=== PATIENT | male | born 1995 | race Caucasian/White ===

== ENCOUNTER 2020-12-30 13:17 | Emergency (ER) | payer MEDICAID, SELFPAY ==
[2020-12-30 13:24] VITALS: BP 148/101; PULSE 79; RESP 20; TEMP 36.5; O2SAT 98
--- NOTE | 2020-12-30 14:07 | ED.GENADUL_ITS ---
Discharge Plan Disposition Patient Disposition: HOME Condition: Stable Discharge Details Clinical Impression: Finger laceration Primary Care Provider: Jessica Najera ED Provider: Hilario York Home Meds and New Rx's Prescriptions: No Action No Known Home Meds RF: 0 Discharge Instructions Instructions: Finger Laceration (ED) Additional Instructions: Keep the wound clean and dry. Nhho-ecn-[id number] Tylenol and/or Motrin as directed for discomfort. Please watch for new or worsening symptoms and return to the ER for any concerns. Stand Alone Forms: Work Release Medical Decision Making 25-year-old gentleman, history of hypertension, noncompliant with his medication, presents for evaluation of left index finger injury. He is right- hand dominant. Examination reveals a well-healing laceration. Neuro, vascular, tendon intact. He reports occasional shooting pain from his shoulder down to his hand with movement or lifting. Likely unrelated to the laceration. He appears well, nontoxic. We discussed routine wound care as well as anti- inflammatory therapy for his discomfort. Patient has no additional questions or concerns and is comfortable this plan. HPI General Mode of arrival: ambulatory . Date/Time Provider Initiated Documentation: 12/30/20 13:18 . Limitations to Documentation: no limitations . HPI Narrative: This is a 25-year-old gentleman, history of hypertension, [id number], presenting for a left index finger injury that occurred yesterday at work. He states that he accidentally cut his finger with a knife. He was able to clean it immediately, bleeding stopped in a short period of time with simple pressure. Subsequently he noticed some pain in his left arm worse with movement and li fting. He is concerned that that pain is he is experiencing in his arm could be related to the finger laceration yesterday. He is able to completely move his finger. Denies numbness, tingling, weakness. Reports tetanus is up-to-date. Related Data Home Medications Medication Instructions Recorded Confirmed Unknown [No Known Home Meds] 12/30/20 12/30/20 Allergies Allergy/AdvReac Type Severity Reaction Status Date / Time peanut Allergy Anaphylaxis Unverified 12/30/20 13:28 bee stings Allergy Anaphylaxis Uncoded 12/30/20 13:28 General Stated Complaint: GenMedical COLIN: 4 Review of Systems Constitutional Constitutional: Denies fever(s) and Denies weakness Musculoskeletal Musculoskeletal: Denies numbness and Denies tingling Integumentary/Breasts Skin/Breast: Denies rash Neurologic Neurologic: Denies numbness, Denies tingling and Denies weakness [facility] Social History Smoking/Tobacco Use Status: Never Smoking risk assessment performed?: Yes Alcohol Intake: current Alcohol Intake frequency: 3 or more drinks per day Alcohol type: beer, wine and hard liquor Substance use type: does not use Do you feel safe at home: Yes Do you feel safe in your relationship?: Yes Exam Const General: cooperative, healthy appearing, comfortable and no acute distress Orientation: alert and awake [facility] Head: normal to inspection, normocephalic and atraumatic Eyes General: appearance normal, both eyes and all related structures Conjunctivae: conjunctivae normal Sclera: sclerae normal Neck Neck: normal visual inspection, full ROM, trachea midline, supple and nontender Resp Effort & Inspection: normal respiratory effort and able to speak in complete sentences Cardio Rate: regular rate Rhythm: regular rhythm Skin General skin exam: no rashes or lesions noted Neuro General: patient alert, patient awake, moves all extremities and no focal motor deficits Sensory Exam: no sensory deficits noted Extrem General: normal to inspection, full ROM and capillary refill normal Right upper extremity: normal to inspection, full ROM, normal capillary refill and no joint enlargement; no cyanosis and no edema Hand/finger images: 1. There is a 0.5 cm laceration that is well-healing and approximated. Nontender. Without erythema. Neuro, vascular, tendon intact. Psych Appearance: grossly normal Mental Status: mental status grossly normal Course Vital Signs Vital signs: Vital Signs Temperature 36.5 C 12/30/20 13:24 Pulse 79 12/30/20 13:24 Respiratory Rate 20 12/30/20 13:24 Blood Pressure 148/101 H 12/30/20 13:24 Pulse Oximetry 98 12/30/20 13:24 Temperature 36.5 C 12/30/20 13:24 Temperature Source Skin 12/30/20 13:24 Pulse 79 12/30/20 13:24 Respiratory Rate 20 12/30/20 13:24 Respiratory Effort Non-Labored 12/30/20 13:29 Blood Pressure 148/101 H 12/30/20 13:24 Blood Pressure Position Sitting 12/30/20 13:24 Pulse Oximetry 98 12/30/20 13:24 Oxygen Delivery Method Room Air 12/30/20 13:24 Oxygen Flow Rate 0 12/30/20 13:24 Pain Level 5 12/30/20 13:24 Comment 12/30/20 13:24
[2020-12-30 14:12] VITALS: BP 146/100; PULSE 85; O2SAT 96
== END 2020-12-30 14:14 | disposition home or self-care (01) ==
PROVIDERS: Emergency Provider Physician Assistant; PCP Nurse Practitioner Family
DX: S61.211A Laceration without foreign body of left index finger without damage to nail, initial encounter (principal); W26.0XXA Contact with knife, initial encounter; Y99.0 Civilian activity done for income or pay
CPT/HCPCS: 99282; 99283

== ENCOUNTER 2021-01-18 21:31 | Outpatient (REF) | payer MEDICAID, SELFPAY ==
[2021-01-18 19:59] LABS: HCT 49.1 % (40.0-50.0); MCH 31.2 pg (27.0-33.0); MCHC 34.6 % (32.0-36.0); MCV 90.1 fL (80-95); MPV 9.5 fL (8.0-11.0); Platelet Count 270 10^3/uL (130-400); RBC 5.45 10^6/uL (4.36-5.78); RDW 12.2 % (11.8-14.1); RDW-SD 39.5 fL; WBC 7.65 10^3/uL (4.4-10.8)
[2021-01-18 20:33] LABS: ALT 115 U/L (16-63); AST 63 U/L (15-37); Albumin 4.6 g/dL (3.4-5.0); Alkaline Phosphatase 66 U/L (46-116); Anion Gap 11.4 mmol/L (3-11); BUN 14 mg/dL (7-18); Bilirubin, Total 0.6 mg/dL (0.2-1.0); CO2 27.6 mmol/L (21.0-32.0); CREATININE 1.1 mg/dL (0.70-1.30); Calcium 9.7 mg/dL (8.5-10.1); Calculated LDL 139 mg/dL (<100); Chloride 103 mmol/L (98-107); Cholesterol 227 mg/dL (<200); Glucose 103 mg/dL (74-106); HDL Cholesterol 46 mg/dL (40-60); Potassium 3.8 mmol/L (3.5-5.1); Sodium 142 mmol/L (136-145); TSH (W/Ref FT4) 1.44 uIU/mL (0.36-3.74); Total Protein 8.2 g/dL (6.4-8.2); Triglyceride 213 mg/dL (<150)
== END 2021-01-18 21:32 | disposition home or self-care (01) ==
LOC: NCHCN 21:31
PROVIDERS: PCP Nurse Practitioner Family; Visit Provider Family Medicine
DX: I10 Essential (primary) hypertension (principal)
CPT/HCPCS: 80053; 80061; 85027; 84443

== ENCOUNTER 2021-01-29 08:24 | Emergency (ER) | payer MEDICAID, SELFPAY ==
[2021-01-29 08:30] VITALS: BP 158/105; PULSE 79; RESP 16; TEMP 36.3; O2SAT 99
--- NOTE | 2021-01-29 08:41 | W.ED.GENAD ---
Discharge Plan Disposition Patient Disposition: HOME Condition: Stable Discharge Details Clinical Impression: Otitis media Primary Care Provider: Jessica Najera ED Provider: Hilario York Home Meds and New Rx's Prescriptions: New amoxicillin 875 mg tablet 875 mg PO BID Qty: 20 RF: 0 Discharge Instructions Instructions: Ear Infection (ED) Additional Instructions: Amoxicillin as directed. [id number]-vxl-[id number] Tylenol, Motrin, antihistamine as directed for symptomatic control. You may also use uvvb-zve-dpctwuf cerumen drops for your bilateral ear wax buildup. Please watch for new or worsening symptoms and return to the ER for any concerns. Medical Decision Making 25-year-old smoker presents with 4-day history of right ear being blocked, now progressive pain. Clinically his TM appears erythematous and has slight bulging. No drainage or air-fluid level. No trismus. Pharynx unremarkable. Will recommend kaib-vlt-haqeawa drops for chronic cerumen issues, prescribed amoxicillin for otitis media, and recommend ohxc-cpk-wneleob medications. Patient comfortable with this plan and has no additional questions or concerns Medical Records Medical records reviewed: Yes I reviewed the patient's medical records. HPI General Mode of arrival: ambulatory. Date/Time Provider Initiated Documentation: 01/29/21 08:33. Limitations to Documentation: no limitations. Information obtained by: patient. HPI Narrative: This is a 25-year-old male, current half pack a day smoker, presenting with chief complaint of an ear infection. He reports that 4 days ago he felt as though his right ear was blocked, progressively it became more and more uncomfortable, and now the pain seems to travel downward from his ear to his jaw. He denies any fever, trauma, sore throat, ear drainage. Denies any cough or rash. He has not taken any medications for his symptoms. He reports pain is currently moderate in nature. He has had an ear infection in the past and this feels similarly. Denies any mouth or dental pain. Denies facial swelling. Related Data Home Medications Medication Instructions Recorded Confirmed amoxicillin 875 mg PO BID #20 tab 01/29/21 Previous Rx's Medication Instructions Recorded amoxicillin 875 mg PO BID #20 tab 01/29/21 Allergies Allergy/AdvReac Type Severity Reaction Status Date / Time bee venom protein (honey bee) Allergy Anaphylaxis Unverified 01/29/21 08:33 peanut Allergy Anaphylaxis Unverified 12/30/20 13:28 General Stated Complaint: EarProblem COLIN: 4 Review of Systems Constitutional Constitutional: Denies fever(s) and Denies headache(s) Eyes Eyes: Denies eye discharge ENT Ears, Nose, Mouth, and Throat: Reports otalgia, Denies headache(s), Denies nasal congestion, Denies neck pain and Denies sore throat Cardiovascular Cardiovascular: Denies dyspnea Respiratory Respiratory: Denies cough and Denies dyspnea Musculoskeletal Musculoskeletal: Denies neck pain Integumentary/Breasts Skin/Breast: Denies rash Neurologic Neurologic: Denies headache(s) [facility] Social History Smoking/Tobacco Use Status: Current every day Tobacco Type: cigarettes Smoking risk assessment performed?: Yes Alcohol Intake: current Alcohol Intake frequency: 3 or more drinks per day Alcohol type: beer, wine and hard liquor Drug use: Never Substance use type: does not use Do you feel safe at home: Yes Do you feel safe in your relationship?: Yes Exam Const General: cooperative, healthy appearing, comfortable and no acute distress Orientation: alert, awake and oriented x3 [facility] Head: normal to inspection, normocephalic and atraumatic Ears: external ears normal, TM normal on the left, mastoids normal, no periauricular adenopathy, TM abnormal bulging and erythematous; with no fluid behind the TM and other (Moderate cerumen bilateral ears, no impaction) General nose exam: external nose normal Face and sinus: normal facial exam Mouth: moist mucous membranes Throat: posterior oropharynx normal Eyes General: appearance normal, both eyes and all related structures Conjunctivae: conjunctivae normal Sclera: sclerae normal Neck Neck: normal visual inspection, full ROM, no lymphadenopathy, trachea midline, supple and nontender Resp Effort & Inspection: normal respiratory effort and able to speak in complete sentences Skin General skin exam: no rashes or lesions noted Neuro General: patient alert, patient awake, moves all extremities and no focal motor deficits Sensory Exam: no sensory deficits noted Psych Appearance: grossly normal Mental Status: mental status grossly normal Course Vital Signs Vital signs: Vital Signs Temperature 36.3 C L 01/29/21 08:30 Pulse 79 01/29/21 08:30 Respiratory Rate 16 01/29/21 08:30 Blood Pressure 158/105 H 01/29/21 08:30 Pulse Oximetry 99 01/29/21 08:30 Temperature 36.3 C L 01/29/21 08:30 Temperature Source Skin 01/29/21 08:30 Pulse 79 01/29/21 08:30 Respiratory Rate 16 01/29/21 08:30 Respiratory Effort 01/29/21 08:32 Blood Pressure 158/105 H 01/29/21 08:30 Blood Pressure Position Sitting 01/29/21 08:30 Pulse Oximetry 99 01/29/21 08:30 Oxygen Delivery Method Room Air 01/29/21 08:30 Oxygen Flow Rate 0 01/29/21 08:30 Pain Level 4 01/29/21 08:30
[2021-01-29 08:54] VITALS: BP 150/110
== END 2021-01-29 09:06 | disposition home or self-care (01) ==
PROVIDERS: Emergency Provider Physician Assistant; PCP Nurse Practitioner Family
DX: H66.91 Otitis media, unspecified, right ear (principal); H61.23 Impacted cerumen, bilateral
CPT/HCPCS: 99283

== ENCOUNTER 2021-02-04 19:56 | Outpatient (CLI) | payer MEDICAID, SELFPAY ==
--- NOTE | 2021-02-04 | DI.RAD_ITS ---
EXAM: XR FOOT LT COMPLETE CLINICAL HISTORY: LT FOOT PAIN [id number]. TECHNIQUE: 2D digital imaging was performed. COMPARISON: No exams were available for comparison FINDINGS: BONES: No acute fracture is present. No bony destructive lesion is seen. There is a bipartite medial sesamoid at the head of the 1st metatarsal. JOINTS: No dislocation present. SOFT TISSUE: Normal. IMPRESSION: No definite acute fracture or dislocation. Please correlate with patient's site of pain. DATA REPOSITORY: RADIATION DOSE DELIVERED:
== END 2021-02-04 20:16 ==
PROVIDERS: PCP Nurse Practitioner Family; Visit Provider Family Medicine
DX: M79.672 Pain in left foot (principal)
CPT/HCPCS: 73630

== ENCOUNTER 2021-03-16 11:08 | Emergency (ER) | payer MEDICAID, SELFPAY ==
[2021-03-16] VITALS (24 sets, daily range): BP systolic 135–160; BP diastolic 86–105; PULSE 66–86; RESP 11–23; TEMP 37; O2SAT 91–99
[2021-03-16] MEDS: Normal Saline Flush 10 ML SYR IVP (11:45)
[2021-03-16 11:55] LABS: Abs Immature Grans 0.01 10^3/uL (0.0-0.06); Absolute Basophil Count 0.02 10^3/uL (0.0-0.2); Absolute Eosinophil Count 0.05 10^3/uL (0.0-0.7); Absolute Lymphocyte Count 1.84 10^3/uL (1.2-3.4); Absolute Neutrophil Count 3.77 10^3/uL (1.2-6.7); Basophils % 0.3; Eosinophils % 0.8; HCT 46.4 % (40.0-50.0); HGB 15.5 g/dL (13.5-17.5); Immature Grans % 0.2; Lymphocytes % 29.3; MCHC 33.4 % (32.0-36.0); MCV 89.9 fL (80-95); MPV 8.6 fL (8.0-11.0); Monocytes % 9.5; Neutrophils % 59.9; Nucleated RBC 0 %; Platelet Count 253 10^3/uL (130-400); RBC 5.16 10^6/uL (4.36-5.78); RDW-SD 39.8 fL; WBC 6.29 10^3/uL (4.4-10.8)
[2021-03-16 12:10] LABS: ALT 105 U/L (16-63); AST 54 U/L (15-37); Albumin 4.2 g/dL (3.4-5.0); Alkaline Phosphatase 56 U/L (46-116); Anion Gap 9.4 mmol/L (3-11); BUN 18 mg/dL (7-18); Bilirubin, Total 0.6 mg/dL (0.2-1.0); CO2 29.6 mmol/L (21.0-32.0); CREATININE 1.2 mg/dL (0.70-1.30); Calcium 9.2 mg/dL (8.5-10.1); Chloride 103 mmol/L (98-107); ETHANOL BLOOD < 3.0 mg/dL (<3); Glucose 93 mg/dL (74-106); Lipase 98 U/L (73-393); Magnesium 1.8 mg/dL (1.8-2.4); Potassium 3.9 mmol/L (3.5-5.1); Sodium 142 mmol/L (136-145); Total Protein 7.7 g/dL (6.4-8.2)
[2021-03-16] MEDS: chlordiazePOXIDE 25 MG CAP PO (12:11)
[2021-03-16 12:15] LABS: Bilirubin Negative (Negative); Blood Negative (Negative); Clarity Clear (Clear); Glucose Negative (Negative); Ketones Negative (Negative); Leukocyte Esterase Negative (Negative); Nitrite Negative (Negative); pH 8.5 (5-8)
[2021-03-16 12:17] LABS: PTT Activated 23.9 sec (21.0-27.5); Prothrombin Time 10.4 sec (9.3-11.0)
[2021-03-16 12:23] LABS: Bacteria Rare HPF (Negative); Crystals Negative HPF (Negative); Epithelial Cells Rare HPF (Negative); Mucus Trace (Negative); Other Cells Negative (Negative); RBC 0-2 HPF (0-2); WBC 0-2 HPF (0-5)
[2021-03-16 12:24] LABS: C & S Indicated? No; Casts Negative LPF (Negative)
[2021-03-16 12:28] LABS: *AMPHETAMINES SCREEN URINE Negative (Negative); *BARBITURATES SCREEN URINE Negative (Negative); *BENZODIAZEPINES SCREEN URINE Negative (Negative); Cannabinoids THC Negative (Negative); Cocaine Screen,Urine Negative (Negative); METHADONE URINE SCREEN Negative (Negative); OPIATES URINE SCREEN Negative (Negative); Tricyclic Antidepressants Negative (Negative)
--- NOTE | 2021-03-16 12:39 | ED.GENADUL_ITS ---
Discharge Plan Disposition Patient Disposition: HOME Condition: Stable Discharge Details Clinical Impression: Alcohol withdrawal Primary Care Provider: Jessica Najera ED Provider: Hilario York Home Meds and New Rx's Prescriptions: New chlordiazepoxide HCl 25 mg capsule 25 mg PO Q8H PRN (Reason: alcohol withdrawal) Qty: 10 RF: 0 Continued lisinopril 10 mg Tablet 10 mg PO DAILY RF: 0 Discharge Instructions Instructions: Alcohol Withdrawal (ED) Additional Instructions: At this time your laboratory values do not reveal any obvious emergent process. Please follow the instructions given to you by both our care management team and the executive business coach. I am providing you a short-term prescription of Librium, please take as directed. You are already on the list for 2 detox facilities here in the [facility], please await bed availability and placement. Watch for new or worsening symptoms and return to the ER for any concerns. Today, there is no sign of anemia. As we discussed, if you have ongoing concerns about potential GI bleeding, outpatient colonoscopy likely indicated. Medical Decision Making 25-year-old gentleman reports history of alcohol abuse, whiskey, last drink this morning. He is already on the list for placement at 2 separate facilities here in the [facility]. He reports that his withdrawal symptoms at this time are minimal because he did drink this morning. He noticed what he thought was some darker than usual urine, possible blood in his urine and stool over the past 24-48 hours. He denies any suicidal or homicidal ideations. Clinically he appears well, nontoxic. He is without abdominal pain, tremors, vomiting, etc. Will obtain IV access, give a banana bag, obtain medical screening laboratory values, and requested both are care management and executive business coach both meet with the patient. In the meantime I will give him a single dose of 25 p.o. Librium. Banana bag was delayed, instead patient received 1 L IV fluid, oral magnesium, thiamine, multivitamin. Laboratory values are unremarkable for obvious emergent process. His alcohol level is actually less than 3. No evidence of anemia. Urinalysis negative for blood. Discussed benign laboratory values with patient. Patient remains hemodynamically stable. Both our executive business coach and care management team evaluated patient. Patient is already on the wait list for 2 separate detox facilities. At this time it does not appear that he needs emergent inpatient criteria. I will provide the patient with a limited prescription, 10 tablets, 25 mg Librium. He was encouraged to return to the ER for new or worsening symptoms. Otherwise he will continue seeking placement in a detox facility. Encouraged to return to the ER for new or worsening symptoms. Standard return and discharge precautions given. Medical Records Medical records reviewed: Yes I reviewed the patient's medical records. Lab Data Lab results reviewed: Yes I reviewed the patient's lab results. Labs: Laboratory Tests Range/Units 03/16/21 03/16/21 03/16/21 11:45 11:45 11:45 WBC (4.4-10.8) 10^3/uL 6.29 RBC (4.36-5.78) 10^6/uL 5.16 Hgb (13.5-17.5) g/dL 15.5 Hct (40.0-50.0) % 46.4 MCV (80-95) fL 89.9 MCH (27.0-33.0) pg 30.0 MCHC (32.0-36.0) % 33.4 RDW (11.8-14.1) % 12.0 Plt Count (130-400) 10^3/uL 253 MPV (8.0-11.0) fL 8.6 Immature Gran % 0.2 Neutrophils % 59.9 Lymphocytes % 29.3 Monocytes % 9.5 Eosinophils % 0.8 Basophils % 0.3 Nucleated RBC % % 0 Absolute Neutrophils (1.2-6.7) 10^3/uL 3.77 Absolute Lymphocytes (1.2-3.4) 10^3/uL 1.84 Absolute Monocytes (0.1-0.8) 10^3/uL 0.60 Absolute Eosinophils (0.0-0.7) 10^3/uL 0.05 Absolute Basophils (0.0-0.2) 10^3/uL 0.02 PT Cancelled INR Cancelled APTT Cancelled Sodium (136-145) mmol/L 142 Potassium (3.5-5.1) mmol/L 3.9 Chloride (98-107) mmol/L 103 Carbon Dioxide (21.0-32.0) mmol/L 29.6 Anion Gap (3-11) mmol/L 9.4 BUN (7-18) mg/dL 18 Creatinine (0.70-1.30) mg/dL 1.2 Estimated GFR/1.73 m2 (mL/min/1.73m2) >= 60.00 Glucose (74-106) mg/dL 93 Calcium (8.5-10.1) mg/dL 9.2 Magnesium (1.8-2.4) mg/dL 1.8 Total Bilirubin (0.2-1.0) mg/dL 0.6 AST (15-37) U/L 54 H ALT (16-63) U/L 105 H Alkaline Phosphatase (46-116) U/L 56 Total Protein (6.4-8.2) g/dL 7.7 Albumin (3.4-5.0) g/dL 4.2 Lipase (73-393) U/L 98 Urine Color (Yellow) Urine Clarity (Clear) Urine pH (5-8) Ur Specific [place] (1.005-1.025) Urine Protein (Negative) mg/dL Urine Ketones (Negative) mg/dL Urine Blood (Negative) Urine Nitrite (Negative) Urine Bilirubin (Negative) Urine Urobilinogen (Up TO 0.2) EU/dL Ur Leukocyte Esterase (Negative) Urine RBC (0-2) HPF Urine WBC (0-5) HPF Ur Epithelial Cells (Negative) HPF Urine Crystals (Negative) HPF Urine Bacteria (Negative) HPF Urine Casts (Negative) LPF Urine Mucus (Negative) Urine Other (Negative) Ur Culture Indicated? Urine Glucose (Negative) mg/dL Urine Opiates Screen (Negative) Urine Methadone Screen (Negative) Ur Barbiturates Screen (Negative) Ur Tricyclics Screen (Negative) Ur Amphetamines Screen (Negative) U Benzodiazepines Scrn (Negative) Urine Cocaine Screen (Negative) Ur THC Screen (Negative) Ethyl Alcohol (<3) mg/dL < 3.0 Range/Units 03/16/21 03/16/21 03/16/21 11:55 12:05 12:05 WBC (4.4-10.8) 10^3/uL RBC (4.36-5.78) 10^6/uL Hgb (13.5-17.5) g/dL Hct (40.0-50.0) % MCV (80-95) fL MCH (27.0-33.0) pg MCHC (32.0-36.0) % RDW (11.8-14.1) % Plt Count (130-400) 10^3/uL MPV (8.0-11.0) fL Immature Gran % Neutrophils % Lymphocytes % Monocytes % Eosinophils % Basophils % Nucleated RBC % % Absolute Neutrophils (1.2-6.7) 10^3/uL Absolute Lymphocytes (1.2-3.4) 10^3/uL Absolute Monocytes (0.1-0.8) 10^3/uL Absolute Eosinophils (0.0-0.7) 10^3/uL Absolute Basophils (0.0-0.2) 10^3/uL PT 10.4 INR 1.0 APTT 23.9 Sodium (136-145) mmol/L Potassium (3.5-5.1) mmol/L Chloride (98-107) mmol/L Carbon Dioxide (21.0-32.0) mmol/L Anion Gap (3-11) mmol/L BUN (7-18) mg/dL Creatinine (0.70-1.30) mg/dL Estimated GFR/1.73 m2 (mL/min/1.73m2) Glucose (74-106) mg/dL Calcium (8.5-10.1) mg/dL Magnesium (1.8-2.4) mg/dL Total Bilirubin (0.2-1.0) mg/dL AST (15-37) U/L ALT (16-63) U/L Alkaline Phosphatase (46-116) U/L Total Protein (6.4-8.2) g/dL Albumin (3.4-5.0) g/dL Lipase (73-393) U/L Urine Color (Yellow) Yellow Urine Clarity (Clear) Clear Urine pH (5-8) 8.5 H Ur Specific [place] (1.005-1.025) 1.020 Urine Protein (Negative) mg/dL Trace H Urine Ketones (Negative) mg/dL Negative Urine Blood (Negative) Negative Urine Nitrite (Negative) Negative Urine Bilirubin (Negative) Negative Urine Urobilinogen (Up TO 0.2) EU/dL 1.0 H Ur Leukocyte Esterase (Negative) Negative Urine RBC (0-2) HPF 0-2 Urine WBC (0-5) HPF 0-2 Ur Epithelial Cells (Negative) HPF Rare Urine Crystals (Negative) HPF Negative Urine Bacteria (Negative) HPF Rare Urine Casts (Negative) LPF Negative Urine Mucus (Negative) Trace Urine Other (Negative) Negative Ur Culture Indicated? No Urine Glucose (Negative) mg/dL Negative Urine Opiates Screen (Negative) Negative Urine Methadone Screen (Negative) Negative Ur Barbiturates Screen (Negative) Negative Ur Tricyclics Screen (Negative) Negative Ur Amphetamines Screen (Negative) Negative U Benzodiazepines Scrn (Negative) Negative Urine Cocaine Screen (Negative) Negative Ur THC Screen (Negative) Negative Ethyl Alcohol (<3) mg/dL HPI General Mode of arrival: ambulatory . Date/Time Provider Initiated Documentation: 03/16/21 11:10 . Limitations to Documentation: no limitations . Information obtained by: patient . HPI Narrative: This is a 25-year-old male, reports alcohol abuse, a 5th of whiskey daily, current smoker, presenting for alcohol withdrawal. Patient states that he has formally detox once, approximately 1 year ago and was sober for roughly 3 months. Patient states that he has already been in contact with to detox facilities [place] the [place] and he is on the waiting list for both of them. Patient states that when he does not have any drinks he develops headache, shaking, nausea, and just feeling out of it. He tells me that he has had hallucinations in the past but denies any history of alcohol withdrawal seizures. Patient states that this morning he had 2 drinks of whiskey so that his withdrawal would not be severe. He states over the past 24-48 hours he has noticed what he thought was darker than normal urine, potential blood in his urine and stool. He denies recent illness, trauma, visual changes, neck pain, chest pain, shortness of breath, abdominal pain, diarrhea, constipation, dysuria, skin rash, numbness, tingling, focal weakness. Patient states that he has been on Librium in the past which has helped with his withdrawal symptoms. He denies any drug use. Related Data Home Medications Medication Instructions Recorded Confirmed chlordiazepoxide HCl 25 mg PO Q8H PRN #10 cap 03/16/21 lisinopril 10 mg PO DAILY 03/16/21 03/16/21 Previous Rx's Medication Instructions Recorded chlordiazepoxide HCl 25 mg PO Q8H PRN #10 [facility] 03/16/21 Allergies Allergy/AdvReac Type Severity Reaction Status Date / Time bee venom protein (honey bee) Allergy Anaphylaxis Unverified 03/16/21 11:23 peanut Allergy Anaphylaxis Unverified 05/15/21 11:23 General Stated Complaint: ETOHWithdr COLIN: 3 Review of Systems Constitutional Constitutional: Denies fatigue, Denies fever(s), Denies headache(s) and Denies weakness Eyes Eyes: Denies change in vision ENT Ears, Nose, Mouth, and Throat: Denies headache(s) and Denies neck pain Cardiovascular Cardiovascular: Denies chest pain and Denies dyspnea Respiratory Respiratory: Denies cough and Denies dyspnea Gastrointestinal Gastrointestinal: Denies abdominal pain, Denies melena, Reports hematochezia and Reports nausea Genitourinary Genitourinary: Reports hematuria and Denies dysuria Musculoskeletal Musculoskeletal: Denies neck pain, Denies numbness and Denies tingling Integumentary/Breasts Skin/Breast: Denies rash Neurologic Neurologic: Denies headache(s), Denies numbness, Denies tingling and Denies weakness Psychiatric Psychiatric: Denies homicidal ideation and Denies suicidal ideation Endocrine Endocrine: Denies fatigue Hematologic/Lymphatic Hematologic/Lymphatic: Denies easy bleeding and Denies easy bruising PFSH Social History Smoking/Tobacco Use Status: Current every day Tobacco Type: cigarettes Smoking risk assessment performed?: Yes Alcohol Intake: current Alcohol Intake frequency: 3 or more drinks per day Alcohol type: beer, wine and hard liquor Drug use: Never Substance use type: does not use Do you feel safe at home: Yes Do you feel safe in your relationship?: Yes Exam Const General: cooperative, healthy appearing, comfortable and no acute distress Orientation: alert, awake and oriented x3 HENMT Head: normal to inspection, normocephalic and atraumatic Face and sinus: normal facial exam Mouth: moist mucous membranes Throat: posterior oropharynx normal Eyes General: appearance normal, both eyes and all related structures Conjunctivae: conjunctivae normal Neck Neck: normal visual inspection, full ROM, trachea midline and supple Resp Effort & Inspection: normal respiratory effort and able to speak in complete sentences Auscultation: clear to auscultation bilaterally Cardio Rate: regular rate Rhythm: regular rhythm GI Inspection: normal to inspection Palpation: soft, not firm, no guarding, no pulsatile masses and nontender Auscultation: normal bowel sounds Back/Spine/Pelvis Back: No back tenderness Skin General skin exam: no rashes or lesions noted Neuro General: patient alert, patient awake, patient oriented x3, moves all extremities and no focal motor deficits Cognition: normal cognition Speech: speech normal Gait: normal gait Motor: muscle tone normal throughout Sensory Exam: no sensory deficits noted Extrem General: normal to inspection, full ROM and capillary refill normal Psych Appearance: grossly normal Mental Status: mental status grossly normal Course Vital Signs Vital signs: Vital Signs Temperature 37 C 03/16/21 11:16 Pulse 77 03/16/21 11:16 Respiratory Rate 23 03/16/21 11:16 Blood Pressure 160/105 H 03/16/21 11:16 Pulse Oximetry 96 03/16/21 11:16 Temperature 37 C 03/16/21 11:16 Temperature Source Skin 03/16/21 11:16 Pulse 77 03/16/21 11:16 Respiratory Rate 23 03/16/21 11:16 Respiratory Effort Non-Labored 03/16/21 11:16 Respiratory Pattern Normal 03/16/21 11:25 Blood Pressure 160/105 H 03/16/21 11:16 Blood Pressure Position Supine 03/16/21 11:16 Pulse Oximetry 96 03/16/21 11:16 Oxygen Delivery Method Room Air 03/16/21 11:16 Oxygen Flow Rate 0 03/16/21 11:16 Pain Level 7 03/16/21 11:16 Lab/Test Results Lab/Test Results: Laboratory Tests Range/Units 03/16/21 03/16/21 03/16/21 11:45 11:45 11:45 WBC (4.4-10.8) 10^3/uL 6.29 RBC (4.36-5.78) 10^6/uL 5.16 Hgb (13.5-17.5) g/dL 15.5 Hct (40.0-50.0) % 46.4 MCV (80-95) fL 89.9 MCH (27.0-33.0) pg 30.0 MCHC (32.0-36.0) % 33.4 RDW (11.8-14.1) % 12.0 Plt Count (130-400) 10^3/uL 253 MPV (8.0-11.0) fL 8.6 Immature Gran % 0.2 Neutrophils % 59.9 Lymphocytes % 29.3 Monocytes % 9.5 Eosinophils % 0.8 Basophils % 0.3 Nucleated RBC % % 0 Absolute Neutrophils (1.2-6.7) 10^3/uL 3.77 Absolute Lymphocytes (1.2-3.4) 10^3/uL 1.84 Absolute Monocytes (0.1-0.8) 10^3/uL 0.60 Absolute Eosinophils (0.0-0.7) 10^3/uL 0.05 Absolute Basophils (0.0-0.2) 10^3/uL 0.02 PT Cancelled INR Cancelled APTT Cancelled Sodium (136-145) mmol/L 142 Potassium (3.5-5.1) mmol/L 3.9 Chloride (98-107) mmol/L 103 Carbon Dioxide (21.0-32.0) mmol/L 29.6 Anion Gap (3-11) mmol/L 9.4 BUN (7-18) mg/dL 18 Creatinine (0.70-1.30) mg/dL 1.2 Estimated GFR/1.73 m2 (mL/min/1.73m2) >= 60.00 Glucose (74-106) mg/dL 93 Calcium (8.5-10.1) mg/dL 9.2 Magnesium (1.8-2.4) mg/dL 1.8 Total Bilirubin (0.2-1.0) mg/dL 0.6 AST (15-37) U/L 54 H ALT (16-63) U/L 105 H Alkaline Phosphatase (46-116) U/L 56 Total Protein (6.4-8.2) g/dL 7.7 Albumin (3.4-5.0) g/dL 4.2 Lipase (73-393) U/L 98 Urine Color (Yellow) Urine Clarity (Clear) Urine pH (5-8) Ur Specific [place] (1.005-1.025) Urine Protein (Negative) mg/dL Urine Ketones (Negative) mg/dL Urine Blood (Negative) Urine Nitrite (Negative) Urine Bilirubin (Negative) Urine Urobilinogen (Up TO 0.2) EU/dL Ur Leukocyte Esterase (Negative) Urine RBC (0-2) HPF Urine WBC (0-5) HPF Ur Epithelial Cells (Negative) HPF Urine Crystals (Negative) HPF Urine Bacteria (Negative) HPF Urine Casts (Negative) LPF Urine Mucus (Negative) Urine Other (Negative) Ur Culture Indicated? Urine Glucose (Negative) mg/dL Urine Opiates Screen (Negative) Urine Methadone Screen (Negative) Ur Barbiturates Screen (Negative) Ur Tricyclics Screen (Negative) Ur Amphetamines Screen (Negative) U Benzodiazepines Scrn (Negative) Urine Cocaine Screen (Negative) Ur THC Screen (Negative) Ethyl Alcohol (<3) mg/dL < 3.0 Range/Units 03/16/21 03/16/21 03/16/21 11:55 12:05 12:05 WBC (4.4-10.8) 10^3/uL RBC (4.36-5.78) 10^6/uL Hgb (13.5-17.5) g/dL Hct (40.0-50.0) % MCV (80-95) fL MCH (27.0-33.0) pg MCHC (32.0-36.0) % RDW (11.8-14.1) % Plt Count (130-400) 10^3/uL MPV (8.0-11.0) fL Immature Gran % Neutrophils % Lymphocytes % Monocytes % Eosinophils % Basophils % Nucleated RBC % % Absolute Neutrophils (1.2-6.7) 10^3/uL Absolute Lymphocytes (1.2-3.4) 10^3/uL Absolute Monocytes (0.1-0.8) 10^3/uL Absolute Eosinophils (0.0-0.7) 10^3/uL Absolute Basophils (0.0-0.2) 10^3/uL PT 10.4 INR 1.0 APTT 23.9 Sodium (136-145) mmol/L Potassium (3.5-5.1) mmol/L Chloride (98-107) mmol/L Carbon Dioxide (21.0-32.0) mmol/L Anion Gap (3-11) mmol/L BUN (7-18) mg/dL Creatinine (0.70-1.30) mg/dL Estimated GFR/1.73 m2 (mL/min/1.73m2) Glucose (74-106) mg/dL Calcium (8.5-10.1) mg/dL Magnesium (1.8-2.4) mg/dL Total Bilirubin (0.2-1.0) mg/dL AST (15-37) U/L ALT (16-63) U/L Alkaline Phosphatase (46-116) U/L Total Protein (6.4-8.2) g/dL Albumin (3.4-5.0) g/dL Lipase (73-393) U/L Urine Color (Yellow) Yellow Urine Clarity (Clear) Clear Urine pH (5-8) 8.5 H Ur Specific [place] (1.005-1.025) 1.020 Urine Protein (Negative) mg/dL Trace H Urine Ketones (Negative) mg/dL Negative Urine Blood (Negative) Negative Urine Nitrite (Negative) Negative Urine Bilirubin (Negative) Negative Urine Urobilinogen (Up TO 0.2) EU/dL 1.0 H Ur Leukocyte Esterase (Negative) Negative Urine RBC (0-2) HPF 0-2 Urine WBC (0-5) HPF 0-2 Ur Epithelial Cells (Negative) HPF Rare Urine Crystals (Negative) HPF Negative Urine Bacteria (Negative) HPF Rare Urine Casts (Negative) LPF Negative Urine Mucus (Negative) Trace Urine Other (Negative) Negative Ur Culture Indicated? No Urine Glucose (Negative) mg/dL Negative Urine Opiates Screen (Negative) Negative Urine Methadone Screen (Negative) Negative Ur Barbiturates Screen (Negative) Negative Ur Tricyclics Screen (Negative) Negative Ur Amphetamines Screen (Negative) Negative U Benzodiazepines Scrn (Negative) Negative Urine Cocaine Screen (Negative) Negative Ur THC Screen (Negative) Negative Ethyl Alcohol (<3) mg/dL
[2021-03-16] MEDS: Normal Saline 1,000 ML 1000 ML IV (12:45)
[2021-03-16] MEDS: Magnesium Oxide 400 MG TAB PO (13:19)
[2021-03-16] MEDS: Thiamine 100 MG TAB PO (13:30)
[2021-03-16] MEDS: Multivitamin TAB 1 TAB PO (13:30)
== END 2021-03-16 13:45 | disposition home or self-care (01) ==
PROVIDERS: Emergency Provider Physician Assistant; PCP Nurse Practitioner Family
DX: F10.130 Alcohol abuse with withdrawal, uncomplicated (principal)
CPT/HCPCS: 36415; 80053; 80307; 83690; 96360; 99284; 80320; 81003; 81015; 83735; 85025; 85610; 85730